=== PATIENT | female | born 1950 ===

== ENCOUNTER 2016-12-23 13:36 | Inpatient (IN) ==
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
[2016-12-23] MEDS ORDERED: GLUCAGON 1 MG VIAL IM PRN (17:07)
[2016-12-23] MEDS ORDERED: ACETAMINOPHEN 325 MG TABLET PO PRN (17:07)
[2016-12-23] MEDS ORDERED: ONDANSETRON 4 MG/2 ML VIAL IV PRN (17:07)
[2016-12-23] MEDS ORDERED: MAGNESIUM SULF RIDER 2 GM in PREMIX 1 EACH IV PRN (17:07)
[2016-12-23] MEDS ORDERED: MAGNESIUM SULF RIDER 4 GM in PREMIX 1 EACH IV PRN (17:07)
[2016-12-23] MEDS ORDERED: DEXTROSE 50% 25 GM/50 ML VIAL IV PRN (17:07)
[2016-12-23] MEDS ORDERED: diphenhydrAMINE CAP 25 MG CAPSULE PO PRN (17:09)
[2016-12-23 17:59] LABS: Basophils # 0.1 10*3/uL (0.0-0.2); Basophils % 0.6 % (0.0-0.8); Eosinophils # 0.7 10*3/uL (0.0-0.87); Eosinophils % 7.3 % (0.00-10.9); Hematocrit 34.3 VOL% (35.7-47.0); Immature Granulocytes % 0.3 %; Immature Granulocytes Absolute 0.03 #; Lymphocytes # 2.5 10*3/uL (1.4-4.0); Mean Corpuscular HGB Conc 32.1 GM/DL (32-36); Mean Corpuscular Hemoglobin 31 PG (27-34); Mean Corpuscular Volume 96.6 FL (87-102); Mean Platelet Volume 9.3 FL (9.6-12.0); Monocytes # 0.7 10*3/uL (0.11-0.8); Monocytes % 6.9 % (1.7-12.7); Neutrophils % 59.9 % (38.7-73.9); Platelet Count 251 T/CUMM (130-400); Red Blood Count 3.55 MC/CUMM (3.8-5.5); Red Cell Distribution Width 15.9 % (9.3-17.3); White Blood Count 10.1 T/CUMM (4-12)
[2016-12-23] MEDS ORDERED: POLYVINYL ALCOHOL 1.4% OPH SOLN 15 ML BOTTLE BOTH EYES PRN (18:00)
[2016-12-23 18:24] LABS: Calcium 8.6 MG/DL (8.5-10.1); Potassium 4.1 MMOL/L (3.5-5.1)
[2016-12-23] MEDS: CARVEDILOL 3.125 MG TABLET PO SCH (20:57)
[2016-12-23] MEDS: NORTRIPTYLINE 25 MG CAPSULE PO SCH (20:57)
[2016-12-23] MEDS: LISINOPRIL 10 MG TABLET PO SCH (20:58)
[2016-12-23] MEDS: INSULIN GLARGINE 100 UNIT/ML SUBCUT SCH (20:58)
[2016-12-23] MEDS ORDERED: FUROSEMIDE 40 MG/4 ML VIAL IV ONE (21:00)
[2016-12-23] MEDS: MINERAL OIL/PETROLATUM OPH OINT 3.5 GM TUBE BOTH EYES SCH (21:05)
[2016-12-23] MEDS: INSULIN REGULAR 100 UNIT/ML SUBCUT SCH (21:05)
[2016-12-23] MEDS: INSULIN LISPRO 100 UNIT/ML SUBCUT SCH (21:05)
[2016-12-23] MEDS: ENOXAPARIN 40 MG/0.4 ML SYRINGE SUBCUT SCH (21:42)
[2016-12-24 04:32] LABS: Basophils % 0.4 % (0.0-0.8); Eosinophils # 0.6 10*3/uL (0.0-0.87); Eosinophils % 7.6 % (0.00-10.9); Hematocrit 28.9 VOL% (35.7-47.0); Hemoglobin 9.4 GM/DL (12.0-16.0); Immature Granulocytes % 0.5 %; Immature Granulocytes Absolute 0.04 #; Lymphocytes # 2.2 10*3/uL (1.4-4.0); Mean Corpuscular HGB Conc 32.5 GM/DL (32-36); Mean Corpuscular Hemoglobin 31 PG (27-34); Mean Corpuscular Volume 94.8 FL (87-102); Mean Platelet Volume 9.3 FL (9.6-12.0); Monocytes # 0.7 10*3/uL (0.11-0.8); Monocytes % 7.9 % (1.7-12.7); Neutrophils # 4.8 10*3/uL (1.4-7.4); Neutrophils % 57.6 % (38.7-73.9); Platelet Count 204 T/CUMM (130-400); Red Blood Count 3.05 MC/CUMM (3.8-5.5); Red Cell Distribution Width 15.9 % (9.3-17.3); White Blood Count 8.3 T/CUMM (4-12)
[2016-12-24 05:11] LABS: Calcium 7.9 MG/DL (8.5-10.1); Free T4 (Free Thyroxine) 1.14 NG/DL (0.76-1.46); Osmolality,Calculated 287.8 MOS/KG (273-304); Potassium 3.5 MMOL/L (3.5-5.1); Thyroid Stimulating Hormone 6.18 uIU/ml (0.358-3.74)
--- NOTE | 2016-12-24 07:22 | XRay Report ---
Exam: Chest 2 views Date: December 24, 2016 at 7:09 AM Comparison: Chest one view portable October 26, 2015 Reason: Shortness of breath Findings: The cardiac silhouette is again mildly enlarged, and there is prominent calcified plaque at the thoracic aorta. Perihilar and bibasilar opacities are present. This is concerning for pulmonary edema and atelectasis, but pneumonia is not excluded. No pneumothorax is identified, but there is mild bilateral pleural fluid. No acute osseous process is seen. Impression: 1. Mild cardiomegaly. 2. There are perihilar and bibasilar opacities. This is concerning for pulmonary edema and atelectasis, but pneumonia is not excluded. There is also mild bilateral pleural fluid. PROCEDURE INTERPRETED AT [facility] DEPARTMENT OF RADIOLOGY Final Report Signed by: Dr. Kiana Beverly
[2016-12-24] MEDS: INSULIN LISPRO 100 UNIT/ML SUBCUT SCH ×4 (08:39→21:14)
[2016-12-24] MEDS: INSULIN REGULAR 100 UNIT/ML SUBCUT SCH ×4 (08:39→21:14)
[2016-12-24] MEDS: FUROSEMIDE 40 MG/4 ML VIAL IV SCH ×2 (09:41→15:05)
[2016-12-24] MEDS: MULTIVITAMIN (CENTRUM) TABLET PO SCH (09:41)
[2016-12-24] MEDS: LISINOPRIL 10 MG TABLET PO SCH ×2 (09:41→21:13)
[2016-12-24] MEDS: CARVEDILOL 3.125 MG TABLET PO SCH ×2 (09:42→21:13)
[2016-12-24] MEDS: ASPIRIN EC 81 MG TABLET PO SCH (09:42)
[2016-12-24] MEDS: sitaGLIPtin 100 MG TABLET PO SCH (09:42)
[2016-12-24] MEDS: SIMVASTATIN 20 MG TABLET PO SCH (09:42)
--- NOTE | 2016-12-24 14:03 | Hospitalist Progress Note ---
Hospitalist: Subjective Interval history: Mrs Jaquez is feeling much better today. She is breathing better and can get up to the bathroom so I will take her trimble out. Her echo was done but has not been read. She has no history of CAD or [place], no recent illness or thyroid disease. Her symptoms started a couple of days ago. A/P new CHF- pulmonary edema for the first time, responding to lasix. continue lasix and usual lisinopril, coreg, asa, zocor. echo pending. cardiology to see. Needs eval to rule out CAD as cause. BNP 1886 DM- on her home regimen, SSI HTN Hyperlipidemia- on Zocor. Exam - Constitutional Vitals: Period Temp Pulse Resp BP Sys/Berman Pulse Ox Last 24 Hr 97.8 F-98.3 F 84-112 16-20 101-176/57-90 98-100 General appearance: no acute distress, over weight - Eye Eye exam: Present: EOMI. Absent: scleral icterus - Respiratory Respiratory exam: Present: rales (jail up her back) - Cardiovascular Cardiovascular exam: Present: regular rate and rhythm. Absent: diastolic murmur , systolic murmur - GI/Abdominal GI/Abdominal exam: Present: normal bowel sounds, soft. Absent: tenderness - Extremities Exam Extremities exam: Absent: edema - Neurological Exam Neurological exam: Present: alert, oriented X3 Results - Labs CBC & BMP: 12/24/16 04:14 12/24/16 04:14 Lab Results: I have reviewed the past 24 hour labs
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
--- NOTE | 2016-12-24 14:47 | ECHO Report ---
Mercedes Jaquez Exam Date: 12/24/2016 09:32 Referring Physician: Technologist: Cat Edgar Age: 65 Ht (in): 61 Wt (lb): 164 Gender: F Exam Location: [facility] Echo Indications: SOB, CHF, Diabetes, HTN, hyperlipidemia BP: 101 / 57 HR: 84 Rhythm: Sinus Technical Quality: IMPRESSIONS Technically difficult study Grossly 2+ left atrial enlargement Severely reduced LV systolic function with ejection fraction estimated be 20-25% without obvious segmental wall motion abnormality Trace to 1+ mitral and tricuspid regurgitation with RVSP 35 mmHg plus RAP Pleural effusion noted MEASUREMENTS (Male / Female) Normal Values 2D ECHO LV Diastolic Diameter PLAX 4.0 cm 4.2 - 5.9 / 3.9 - 5.3 cm LV Systolic Diameter PLAX 3.1 cm LV Fractional Shortening PLAX 21.8 % IVS Diastolic Thickness 0.8 cm 0.6 - 1.0 / 0.6 - 0.9 cm LVPW Diastolic Thickness 1.1 cm 0.6 - 1.0 / 0.6 - 0.9 cm RV Internal Dim ED PLAX 2.6 cm Aortic Root Diameter 2.7 cm LA Systolic Diameter LX 3.4 cm 3.0 - 4.0 / 2.7 - 3.8 cm DOPPLER TR Peak Velocity 297.0 cm/s TR Peak Gradient 35.3 mmHg FINDINGS Left Ventricle Mildly increased left ventricular cavity size. Mild concentric left ventricular hypertrophy with diastolic dysfunction. Left ventricular ejection fraction is estimated at Right Ventricle Mildly increased right ventricular size. Right Atrium The right atrium is mildly enlarged. Left Atrium The left atrium is mildly enlarged. Mitral Valve Mild mitral valve sclerosis. Mild mitral valve regurgitation. Aortic Valve Mild aortic valve sclerosis. Trace aortic valve regurgitation. Tricuspid Valve Morphologically normal tricuspid valve. Moderate tricuspid valve regurgitation. Tricuspid regurgitation velocities suggest a PAP of 45 mmHg. Pulmonic Valve Morphologically normal pulmonic valve. Pericardium No pericardial effusion. Aorta Normal size aortic root and proximal ascending aorta. Brady Hodges (Electronically Signed) Final Date: 24 December 2016 14:46
[2016-12-24] MEDS: POTASSIUM CHLORIDE 20 MEQ TABLET PO PRN ×2 (15:05→17:13)
--- NOTE | 2016-12-24 15:06 | EKG Report ---
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
--- NOTE | 2016-12-24 15:53 | Physician Query Form ---
CLICK EDIT DOCUMENT TO SELECT QUERY ANSWER --> OK --> SIGN Elisa Arroyo RN Clinical Safety Belt Installer W) [phone] (f) [phone] [email or web address]: Make your selection(s) from the choices in EACH section by typing an "x" and enter comments in the comment section. Please use your independent medical judgment in providing your response. This request does not imply that any particular answer is desired or expected. CLINICAL INDICATORS: (Providers should not edit this section) Based on documentation of "acute CHF", PTR=[id number], Echo showed EF of 20-25% with severely reduced LV systolic function. Pt. treated with IV Lasix. Please provide further specificity regarding CHF. TYPE: ( x) Systolic (HFrEF - heart failure with reduced systolic function/EF) ( ) Diastolic (HFpEF - heart failure with preserved systolic function/EF) ( ) Combined Systolic/Diastolic ( ) Other, please specify: ( ) Clinically unable to determine ( ) The patient does NOT have CHF COMMENTS: PLEASE ALSO DOCUMENT RESPONSE IN PROGRESS NOTES AND/OR DISCHARGE SUMMARY Use of terms such as suspected, likely, or probable (associated with a specific diagnosis that is being evaluated, monitored, or treated as if it exists) are acceptable and can be restated in the discharge summary if not ruled out. MTDD
--- NOTE | 2016-12-24 16:14 | Event Note ---
Patient with chronic congestive heart failure with cardiomyopathy unknown etiology. She has multiple risk factors for coronary disease including diabetes hyperlipidemia hypertension. 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 See the patient carry out cardiac catheterization for evaluation of ischemic heart disease the etiology of her cardiomyopathy. I discussed this procedure with the patient and her family reviewing the indication procedure as well as how the procedure be carried out the risk. I discussed cardiac catheterization and percutaneous coronary intervention with the patient and available family. I reviewed with them the indications for the procedure and the basis of how the procedure would be carried out. I also reviewed with them the risk of the procedure which include but not necessarily limited to access site bleeding, bruising, pain, swelling or vascular injury that may require emergency vascular surgery, blood transfusion, or thrombin injection. Also discussed the possibility of stroke, myocardial infarction, arrhythmia which may require electrocardioversion, and the possibility of dye reaction that would require medical therapy. Also discussed the possibility of coronary artery injury, ruptured, closure or perforation that may require emergency bypass surgery. We also discussed the possibility of from a major complication. They voice understanding and agree to proceed. We will plan on carrying out in the morning.
[2016-12-24] MEDS: HYDROCORTISONE 1% CREAM 28 GM TUBE TOP SCH ×2 (17:11→21:14)
[2016-12-24] MEDS: ENOXAPARIN 40 MG/0.4 ML SYRINGE SUBCUT SCH (17:14)
[2016-12-24] MEDS: [UNRECOGNIZED DRUG - OTHER] PO SCH ×2 (21:11→21:12)
[2016-12-24] MEDS: DEXTROSE PO SCH ×2 (21:11→21:12)
[2016-12-24] MEDS: INSULIN GLARGINE 100 UNIT/ML SUBCUT SCH (21:14)
[2016-12-24] MEDS: NORTRIPTYLINE 25 MG CAPSULE PO SCH (21:14)
[2016-12-24] MEDS: MINERAL OIL/PETROLATUM OPH OINT 3.5 GM TUBE BOTH EYES SCH (21:14)
[2016-12-25 04:04] LABS: Basophils % 0.4 % (0.0-0.8); Eosinophils # 0.7 10*3/uL (0.0-0.87); Eosinophils % 8.4 % (0.00-10.9); Hematocrit 30.3 VOL% (35.7-47.0); Hemoglobin 9.7 GM/DL (12.0-16.0); Immature Granulocytes % 0.4 %; Immature Granulocytes Absolute 0.03 #; Lymphocytes # 1.9 10*3/uL (1.4-4.0); Lymphocytes % 23.4 % (21.3-54.2); Mean Corpuscular Hemoglobin 30 PG (27-34); Mean Platelet Volume 9.8 FL (9.6-12.0); Monocytes # 0.9 10*3/uL (0.11-0.8); Monocytes % 10.8 % (1.7-12.7); Neutrophils # 4.6 10*3/uL (1.4-7.4); Neutrophils % 56.6 % (38.7-73.9); Platelet Count 215 T/CUMM (130-400); Red Blood Count 3.19 MC/CUMM (3.8-5.5); Red Cell Distribution Width 15.9 % (9.3-17.3); White Blood Count 8.1 T/CUMM (4-12)
[2016-12-25 04:35] LABS: Calcium 7.9 MG/DL (8.5-10.1); Osmolality,Calculated 296.1 MOS/KG (273-304); Potassium 4.5 MMOL/L (3.5-5.1); Risk Ratio 1.77; VLDL CHOLESTEROL 17.8 MG/DL
[2016-12-25] MEDS ORDERED: POTASSIUM CHLORIDE RIDER 10 MEQ in PREMIX 1 EACH IV PRN (06:00)
[2016-12-25] MEDS ORDERED: MAGNESIUM SULF RIDER 2 GM in PREMIX 1 EACH IV PRN (06:00)
[2016-12-25] MEDS ORDERED: ASPIRIN 325 MG TABLET PO ONE (06:00)
[2016-12-25] MEDS ORDERED: DIAZEPAM 5 MG TABLET PO ONE (06:00)
[2016-12-25] MEDS ORDERED: SODIUM CHLORIDE 0.9% 1,000 ML IV SCH ×2 (06:00→09:00)
[2016-12-25] MEDS ORDERED: diphenhydrAMINE CAP 25 MG CAPSULE PO ONE (06:00)
--- NOTE | 2016-12-25 06:51 | Event Note ---
Patient this morning is for cardiac catheterization. She states she feels better today. Again we discussed cardiac catheterization possibility of percutaneous coronary intervention. I discussed cardiac catheterization and percutaneous coronary intervention with the patient and available family. I reviewed with them the indications for the procedure and the basis of how the procedure would be carried out. I also reviewed with them the risk of the procedure which include but not necessarily limited to access site bleeding, bruising, pain, swelling or vascular injury that may require emergency vascular surgery, blood transfusion, or thrombin injection. Also discussed the possibility of stroke, myocardial infarction, arrhythmia which may require electrocardioversion, and the possibility of dye reaction that would require medical therapy. Also discussed the possibility of coronary artery injury, ruptured, closure or perforation that may require emergency bypass surgery. We also discussed the possibility of from a major complication. They voice understanding and agree to proceed.
--- NOTE | 2016-12-25 06:51 | History and Physical Update ---
Sedation H&P Update - History and Physical H&P was reviewed, the patient examined and there: are no changes in the patients condition since last H&P was completed. - Dictation Physical: refer to H&P completed by admitting physician - Physical Exam Mental Status: alert and oriented Heart: regular rate and rhythm Lung: clear to auscultation Abdomen: within normal limits Vitals: within normal limits History and Physical Changes: None - Sedation Plan for Sedation: moderate Patient Consent: Procedure disscussed with patient and patinet has consented., Risks and benefits were discussed with patient,including infection,, bleeding, injury to surrounding structures, seizure, temporary nerve, Patient understands and accepts potential risks/benefits and agrees to, proceed. ASA Class: III Airway Assessment: Class III: Soft palate, base of uvula visible
[2016-12-25] MEDS ORDERED: fentaNYL 100 MCG/2 ML VIAL ONE (07:14)
[2016-12-25] MEDS ORDERED: MIDAZOLAM 2 MG/2 ML VIAL ONE (07:14)
[2016-12-25] MEDS ORDERED: LIDOCAINE 1% 20 ML VIAL ONE (07:14)
[2016-12-25] MEDS: CARVEDILOL 3.125 MG TABLET PO SCH ×3 (07:57→20:38)
[2016-12-25] MEDS: LISINOPRIL 10 MG TABLET PO SCH ×3 (07:58→20:38)
[2016-12-25] MEDS: INSULIN REGULAR 100 UNIT/ML SUBCUT SCH ×4 (08:05→20:38)
[2016-12-25] MEDS: FUROSEMIDE 40 MG/4 ML VIAL IV SCH ×2 (08:06→16:54)
[2016-12-25] MEDS ORDERED: ATROPINE 1 MG/1 ML VIAL ONE ×2 (08:46→08:49)
[2016-12-25] MEDS ORDERED: DEXTROSE 50% 25 GM/50 ML VIAL IV PRN (08:58)
[2016-12-25] MEDS ORDERED: GLUCAGON 1 MG VIAL IM PRN (08:58)
--- NOTE | 2016-12-25 08:58 | Operative Note ---
Date of procedure: 12/25/16 Procedure Preformed: Left heart catheterization with coronary artery angiography. LV gram not done secondary to creatinine. Surgeon / Physician: Jarvis Smith Clinical Education Specialist: Archana Car Post-op diagnosis: same Findings: Left dominant system with patent coronary arteries. Elevated LVEDP Specimens: none sent Estimated blood loss: minimal Condition: stable Anesthesia: local, conscious sedation Disposition: floor
[2016-12-25] MEDS: INSULIN LISPRO 100 UNIT/ML SUBCUT SCH ×3 (09:00→20:43)
[2016-12-25] MEDS ORDERED: NALOXONE 0.4 MG/ML VIAL ONE (09:02)
--- NOTE | 2016-12-25 09:21 | Cardiac Catheterization ---
Date of Procedure:: 12/25/16 Pre-op Diagnosis: Patient cardiomyopathy with high risk factors for ischemic heart disease. Further evaluation coronary anatomy. Post-op diagnosis: same Procedure: LEFT HEART CATHERIZATION History: 66-year-old female who presented with heart failure symptomatology findings. She had a diffuse cardiomyopathy. She has multiple risk factors for coronary disease. She is now for cardiac catheterization to evaluate ischemic etiology of her cardiomyopathy. Pre-Op diagnosis: Patient with severe significant cardiomyopathy and decreased ejection fraction. Risk factors for coronary disease now for evaluation. Postoperative diagnosis: Patent coronary arteries. Procedures: 1. Left heart catheterization. 2. Left ventricular angiogram not done secondary to elevated creatinine and high LVEDP. 3. Selective left and right coronary angiograms. 4. Right common femoral artery angiogram. Equipment: 6 Burmese arterial sheath, 6 Burmese diagnostic pigtail catheter, JL4 and JR4 diagnostic catheters. Medications: Preoperative Benadryl and Valium given by mouth. Lidocaine 1% local anesthesia 10 mls administered by myself. Intraprocedure patient received Versed 1 mgs IVP, fentanyl 50 mcg IVP atropine 1.5 mg IVP, for bradycardia. Complications: None immediate. Patient did have bradycardia/sinus arrest with junctional escape with each injection of the left coronary system. Contrast: Visipaque 60 milliliters. Description of procedure: After informed consent the patient was given preoperative medications and brought to the catheterization laboratory where their right groin was prepped and draped in usual fashion. IV sedation was then obtained after which local anesthesia was administered at the right groin over the right common femoral artery. Using modified Seldinger technique the right common femoral artery was cannulated with 6 Burmese arterial sheath placed. The pigtail catheter was then advanced through the sheath in a retrograde approach through the aorta to the aortic valve. The catheter was advanced through the aortic valve where left ventricular pressures were measured. The catheter was then pulled back into the aortic root and pressures measured. The catheter was then advanced across the aortic valve into the left ventricle where left ventricular angiogram was obtained in the right anterior oblique view. The pigtail catheter was then removed. The JL4 diagnostic coronary catheter was then advanced through the sheath in a retrograde approach and used to cannulate the left coronary artery of which angiograms were obtained in multiple projections. This catheter was then removed. The JR 4 diagnostic coronary catheter was then advanced retrograde through the aorta and used to cannulate the right coronary artery of which angiograms were obtained in multiple projections. This right coronary catheter was used to obtain selective left internal mammary artery angiogram. Angiograms were then reviewed. The right coronary catheter was pulled back into the sheath where a right common femoral artery angiogram was obtained with Angio-Seal hemostasis then obtained of this vessel. There were no immediate complications. Hemodynamic data: LV 117/7 , EDP 29 ; AO root 129/75 , mean 95 . Left ventricular angiogram: Not done secondary to elevated creatinine in LV function evaluated by echocardiogram. Left main coronary artery angiogram: There is some calcification of the main coronary artery. It is a medium caliber vessel that bifurcates the LAD and circumflex arteries. Left anterior descending artery angiogram: LAD is a medium caliber vessel and smaller than the circumflex artery. The LAD extends around the posterior apex. Diagonal branches are all small-caliber vessels. LAD at worst has minimal calcification and basal irregularities proximally but there is no stenosis. Circumflex artery angiogram: Circumflex arteries a medium caliber vessel and dominant. He has minimal calcification noted. Gives rise to the PDA as well as AV node artery. The first and second obtuse marginal branches are extremely small. Third obtuse marginal branch is medium caliber vessel. The fourth obtuse marginal branch has a 50% ostial stenosis and is small caliber long vessel. Beyond this there is a bifurcating posterior ventricular branch that is medium caliber car larger myocardium. The PDA is a small caliber vessel as the terminal branch of the circumflex artery. It is small. AV node artery small vessel has a takeoff just prior to the PDA takeoff. Other than 50% stenosis of the fourth obtuse marginal branch and mild luminal irregularities there is no stenosis of significance noted. Right coronary artery angiogram: RCA is a small nondominant vessel. It is without stenosis or disease. Right common femoral artery angiogram:Right common femoral artery is patent with some diffuse calcification. It is noted that the superficial artery is totally occluded and heavily calcified. There is also calcification in the profundus. Hemostasis obtained by direct manual pressure. Impression: 1. Left ventricular angiogram not done secondary elevated creatinine in LV function noted on echocardiogram. 2. LVEDP is at least moderately elevated at 29 mmHg. 3. There is no gradient across the aortic valve. 4. Right coronary artery is small nondominant without stenosis. 5. Left main coronary artery has some calcification and without stenosis. 6. Left anterior right common femoral artery is patent but with some calcification. There is no obstructive disease present. 7. Circumflex artery is dominant. Fourth obtuse marginal having 50% ostial stenosis and luminal irregularities and minimal calcification. 8. Right common femoral artery with some calcification and small. The right superficial femoral artery is totally occluded and appears to be calcified. 9. Hemostasis of the right common femoral artery obtained by direct manual pressure. 10. The patient had sinus asystole with junctional escape with contrast injection of the left coronary system. Discussion: Patient be monitored post procedure. Further evaluation will be carried out in treatment for cardiomyopathy. Risk factor modification is to continue. Implants: None Anesthesia: local, moderate conscious sedation Surgeon / Physician: Jarvis Smith Supervisor Conditioning Yard: other (Archana Car Rn) Estimated blood loss: minimal Specimens: none sent Condition: stable Disposition: floor - Medications / Follow-up
--- NOTE | 2016-12-25 09:58 | Event Note ---
Patient post catheterization is stable. She still sedate. Her right groin is stable. I discussed procedure results with the patient and family available.
[2016-12-25] MEDS: ASPIRIN EC 81 MG TABLET PO SCH (11:46)
[2016-12-25] MEDS: HYDROCORTISONE 1% CREAM 28 GM TUBE TOP SCH ×3 (11:59→20:39)
[2016-12-25] MEDS: SIMVASTATIN 20 MG TABLET PO SCH (11:59)
[2016-12-25] MEDS: sitaGLIPtin 100 MG TABLET PO SCH (11:59)
[2016-12-25] MEDS: MULTIVITAMIN (CENTRUM) TABLET PO SCH (11:59)
--- NOTE | 2016-12-25 13:40 | Hospitalist Progress Note ---
Assessment and Plan (1) CHF (congestive heart failure) Status: Acute Assessment and plan: 1)CHF- acute on chronic systolic- on lisinopril, zocor, lasix and coreg. diuresing. Now lying flat comfortably. home soon. cath without sig CAD. Nonischemic cardiomyopathy. 2)DM- BG from 58 to over 300. continue with SSI for now with lantus and mealtime novolog as at home. 3)HTN- controlled, conitnue meds. Current Visit: Yes (2) Anemia Status: Acute Current Visit: No (3) LATASHA (acute kidney injury) Status: Resolved Current Visit: No (4) Diabetes mellitus Status: Chronic Current Visit: Yes Qualifiers: Diabetes mellitus type: type 2 (5) Hypertension Status: Chronic Current Visit: Yes Qualifiers: Hypertension type: essential hypertension Qualified Code(s): I10 - Essential (primary) hypertension (6) Hyperlipidemia Status: Chronic Current Visit: Yes (7) History of right above knee amputation Status: Chronic Current Visit: Yes Hospitalist: Subjective Interval history: Mrs Jaquez was sedated after cath when I went to see her. She was stable and woke to say she was fine and didn't need anything. She was breathing comfortably on room air. Exam - Constitutional Vitals: Period Temp Pulse Resp BP Sys/Berman Pulse Ox Last 24 Hr 97 F-99.2 F 94-111 18-20 115-139/71-91 100-100 General appearance: no acute distress, over weight - Head Head exam: Present: normocephalic, atraumatic - Respiratory Respiratory exam: Present: clear to auscultation bilaterally - Cardiovascular Cardiovascular exam: Present: regular rate and rhythm - GI/Abdominal GI/Abdominal exam: Present: normal bowel sounds, soft. Absent: tenderness - Extremities Exam Extremities exam: Absent: edema Results - Labs CBC & BMP: 12/25/16 02:29 12/25/16 02:29 Lab Results: I have reviewed the past 24 hour labs Specialty Discharge - Follow Up or Referrals
[2016-12-25] MEDS: DEXTROSE PO SCH (18:42)
[2016-12-25] MEDS: [UNRECOGNIZED DRUG - OTHER] PO SCH (18:42)
[2016-12-25] MEDS: ENOXAPARIN 40 MG/0.4 ML SYRINGE SUBCUT SCH (18:43)
[2016-12-25] MEDS: INSULIN GLARGINE 100 UNIT/ML SUBCUT SCH (20:38)
[2016-12-25] MEDS: MINERAL OIL/PETROLATUM OPH OINT 3.5 GM TUBE BOTH EYES SCH (20:39)
[2016-12-25] MEDS: NORTRIPTYLINE 25 MG CAPSULE PO SCH (20:43)
[2016-12-26 05:11] LABS: Basophils % 0.4 % (0.0-0.8); Eosinophils # 0.8 10*3/uL (0.0-0.87); Eosinophils % 10.6 % (0.00-10.9); Hematocrit 27.8 VOL% (35.7-47.0); Hemoglobin 8.9 GM/DL (12.0-16.0); Immature Granulocytes % 0.3 %; Immature Granulocytes Absolute 0.02 #; Lymphocytes # 1.9 10*3/uL (1.4-4.0); Lymphocytes % 23.4 % (21.3-54.2); Mean Corpuscular Hemoglobin 31 PG (27-34); Mean Corpuscular Volume 95.9 FL (87-102); Monocytes # 0.7 10*3/uL (0.11-0.8); Monocytes % 8.7 % (1.7-12.7); Neutrophils # 4.5 10*3/uL (1.4-7.4); Neutrophils % 56.6 % (38.7-73.9); Platelet Count 201 T/CUMM (130-400); Red Cell Distribution Width 15.7 % (9.3-17.3); White Blood Count 7.9 T/CUMM (4-12)
[2016-12-26 05:41] LABS: Calcium 7.7 MG/DL (8.5-10.1); Magnesium 1.9 MG/DL (1.8-2.4); Osmolality,Calculated 284.5 MOS/KG (273-304); Potassium 4.1 MMOL/L (3.5-5.1)
[2016-12-26 08:20] VITALS: BP 117/69
[2016-12-26] MEDS: INSULIN REGULAR 100 UNIT/ML SUBCUT SCH (08:43)
[2016-12-26] MEDS: FUROSEMIDE 40 MG/4 ML VIAL IV SCH (09:20)
[2016-12-26] MEDS: LISINOPRIL 10 MG TABLET PO SCH (09:22)
[2016-12-26] MEDS: CARVEDILOL 3.125 MG TABLET PO SCH (09:23)
[2016-12-26] MEDS: MULTIVITAMIN (CENTRUM) TABLET PO SCH (09:24)
[2016-12-26] MEDS: ASPIRIN EC 81 MG TABLET PO SCH (09:24)
[2016-12-26] MEDS: sitaGLIPtin 100 MG TABLET PO SCH (09:24)
[2016-12-26] MEDS: INSULIN LISPRO 100 UNIT/ML SUBCUT SCH (09:25)
[2016-12-26] MEDS: SIMVASTATIN 20 MG TABLET PO SCH (09:25)
[2016-12-26] MEDS: HYDROCORTISONE 1% CREAM 28 GM TUBE TOP SCH (09:32)
--- NOTE | 2016-12-26 10:58 | Discharge Summary ---
Hospital Course - Hospital Course Hospital Course: Mrs Jaquez was sent from [facility] ER with new CHF. She has reponded to IV lasix with clearing of her pulmonary edema and her lower extremity edema. She ruled out for OR and her TSH was ok. She has EF of 20-25% on echo. She had cath yesterday that showed 50% ostial LAD disease but did not require percutaneous intervention. This is nonischemic cardiomyopathy, perhaps a result of HTN. She is doing much better and will be discharged home today to follow up with [facility] and with Dr Hodges in 1-2 weeks. She will be on oral lasix in addition to her home regimen of coreg and lisinopril. Continue usual insulin and orals for diabetes. To have work up for anemia as outpatient at [facility]. - Time spent with patient Time with patient DS: Greater than 30 minutes (exam, coordination of care, medicine reconciliation, documentation took 35 minutes.) Diagnosis - Discharge Diagnosis (1) CHF (congestive heart failure) Status: Acute (2) Anemia Status: Chronic (3) Diabetes mellitus Status: Chronic (4) Hypertension Status: Chronic (5) Hyperlipidemia Status: Chronic (6) History of right above knee amputation Status: Chronic Specialty Discharge - Follow Up or Referrals Follow up with: [facility] [Provider Group] - 5 Days (needs outpatient anemia evaluation. new nonischemic cardiomyopathy. ) Brady Hodges MD [Physician] - 2 Weeks Discharge Plan - Discharge Data Disposition: Disch To Home/Self Care Condition at Discharge: Stable Discharge Diet: diabetic diet, heart healthy Activity: resume usual activities as tolerated - Discharge Medications New Hydrocortisone 1% Cream 1 applic TOP TID applic Potassium Chloride 20 meq PO DAILY #30 tab.er.prt Furosemide Tab [Lasix Tab] 40 mg PO DAILY #30 tablet Continue Simvastatin [Zocor] 20 mg PO DAILY tablet Nortriptyline [Pamelor] 50 mg PO BEDTIME Multivitamin with Iron [Multivitamins with Iron] 1 tablet PO DAILY Insulin Aspart [NovoLOG FlexPen] 7 units SUBCUT TID Dextrose [Glucose Chew Tab] 8 gm PO DIRECTED diphenhydrAMINE CAP [Benadryl Cap] 25 mg PO BEDTIME PRN PRN Reason: Insomnia Insulin Detemir [Levemir FlexPen] 30 units SUBCUT BEDTIME Mineral Oil/Petrolatum,White [Artificial Tears Eye Ointment] 1 applicator BOTH EYES BEDTIME Aspirin EC Tab 81 mg PO DAILY Propylene Glycol/Peg 400 [Systane Ultra] 1 drop BOTH EYES QID PRN PRN Reason: Dry Eyes Saxagliptin HCl [Onglyza] 5 mg PO DAILY Lisinopril 10 mg PO BID Carvedilol [Coreg] 6.25 mg PO BID - Follow Up or Referral Follow Up: [facility] [Provider Group] Brady Hodges MD [Physician] - - Forms/Instructions Instructions: Coronary Artery Disease (GEN), Left Heart Catheterization (DC), Hypertrophic Cardiomyopathy (GEN), Heart Healthy Diet (GEN) Exam - Constitutional Vitals: Period Temp Pulse Resp BP Sys/Berman Pulse Ox Last 24 Hr 97.7 F-98.8 F 94-102 18-20 117-139/69-91 98-100 Discharge Results Procedures and tests throughout hospitalization: Pending Orders 12/25/16 08:19 CL heart Stat 12/27/16 04:00 Basic Metabolic Panel w/Mg IN AM Comp Blood Count Auto Diff IN AM 12/28/16 04:00 Basic Metabolic Panel w/Mg IN AM Comp Blood Count Auto Diff IN AM Labs on day of discharge: Labs from last 24 hours 12/26/16 12/26/16 12/26/16 07:57 03:51 03:51 WBC 7.9 RBC 2.90 L Hgb 8.9 L Hct 27.8 L MCV 95.9 MCH 31 MCHC 32.0 RDW 15.7 Plt Count 201 MPV 10.0 Neut % (Auto) 56.6 Lymph % (Auto) 23.4 Boone % (Auto) 8.7 Eos % (Auto) 10.6 Baso % (Auto) 0.4 Neut # (Auto) 4.5 Lymph # (Auto) 1.9 Boone # (Auto) 0.7 Eos # (Auto) 0.8 Baso # (Auto) 0.0 Immature Gran % 0.3 Nucleated RBC % 0.0 Immature Gran # 0.02 Nucleated RBCs # 0.00 Sodium 139 Potassium 4.1 Chloride 103 Carbon Dioxide 27 Anion Gap 13.1 BUN 29 H Creatinine 1.20 H GFR Calculation 48 BUN/Creatinine Ratio 24.00 H Glucose 133 H POC Glucose 143 H Calculated Osmolality 284.5 Calcium 7.7 L Magnesium 1.9 06/12/25/16 12/25/16 20:38 16:30 11:44 WBC RBC Hgb Hct MCV MCH MCHC RDW Plt Count MPV Neut % (Auto) Lymph % (Auto) Boone % (Auto) Eos % (Auto) Baso % (Auto) Neut # (Auto) Lymph # (Auto) Boone # (Auto) Eos # (Auto) Baso # (Auto) Immature Gran % Nucleated RBC % Immature Gran # Nucleated RBCs # Sodium Potassium Chloride Carbon Dioxide Anion Gap BUN Creatinine GFR Calculation BUN/Creatinine Ratio Glucose POC Glucose 224 H 222 H 192 H Calculated Osmolality Calcium Magnesium DS: Provider Date of admission: 12/23/16 15:56 Primary care physician: Gina Jolley MD Attending physician on admission: Tamika Hernandez MD Consults: 12/24/16 10:50 Consult to Physician [CONS] Routine Comment: new chf, ? cause Consulting Provider: Cardiology - [facility] 12/25/16 08:59 Consult to Cardiac Rehabilitation [CONS] Routine Reason for Cardiac Rehabilitation: Risk Factor Modification Discharging clinician: Tamika Hernandez MD
--- NOTE | 2016-12-26 11:36 | Cardiology Progress Note ---
Assessment and Plan (1) Chest pain Status: Acute Assessment and plan: 1. Ms. Jaquez's chest pain is gone and her breathing is much improved 2. Creatinine is slightly up; change Lasix to p.o. 3. No significant coronary artery disease or heart catheterization; she did appear to have at least 50% ostial LAD disease 4. Ostial right SFA occlusion noted. 5. She is on appropriate medication for her acute on chronic systolic heart failure with beta-kaitlyn and MILAD inhibitor 6. Follow-up in clinic in approximately 1-2 weeks time; he is noted to be 20-25 %/nonischemic cardiaomyopathy Current Visit: Yes (2) CHF (congestive heart failure) Status: Acute Current Visit: Yes Cardiology - PN: Subj Interval history: Ms. Jaquez feels much better than when she came in. She has no shortness of breath at rest does not have any chest pain. She has not had any discomfort in her access site. Her blood pressure is controlled and her renal function is reasonably stable. She has had no dysrhythmia. She has not had any bleeding problems. Exam (Progress Note) - Constitutional Vitals: Period Temp Pulse Resp BP Sys/Berman Pulse Ox Last 24 Hr 97.7 F-98.8 F 94-102 18-20 117-134/69-91 98-100 General appearance: no acute distress, over weight - Head Head exam: Present: normal inspection, normocephalic, atraumatic - Neck Neck exam: Present: normal inspection - Respiratory Respiratory exam: Present: rales (Few basilar rales). Absent: rhonchi, stridor , wheezes - Cardiovascular Cardiovascular exam: Present: regular rate and rhythm. Absent: diastolic murmur , rubs - GI/Abdominal GI/Abdominal exam: Present: soft. Absent: tenderness - Extremities Exam Extremities exam: Present: other (AKA unilateral). Absent: edema - Neurological Exam Neurological exam: Present: alert, oriented X3 Result/EKG - Labs CBC & BMP: 12/26/16 03:51 12/26/16 03:51 Labs: Laboratory Results - last 24 hr 12/25/16 12/25/16 12/25/16 11:44 16:30 20:38 WBC RBC Hgb Hct MCV MCH MCHC RDW Plt Count MPV Neut % (Auto) Lymph % (Auto) Terry % (Auto) Eos % (Auto) Baso % (Auto) Neut # (Auto) Lymph # (Auto) Terry # (Auto) Eos # (Auto) Baso # (Auto) Immature Gran % Nucleated RBC % Immature Gran # Nucleated RBCs # Sodium Potassium Chloride Carbon Dioxide Anion Gap BUN Creatinine GFR Calculation BUN/Creatinine Ratio Glucose POC Glucose 192 H 222 H 224 H Calculated Osmolality Calcium Magnesium 12/26/16 12/26/16 12/26/16 03:51 03:51 07:57 WBC 7.9 RBC 2.90 L Hgb 8.9 L Hct 27.8 L MCV 95.9 MCH 31 MCHC 32.0 RDW 15.7 Plt Count 201 MPV 10.0 Neut % (Auto) 56.6 Lymph % (Auto) 23.4 Terry % (Auto) 8.7 Eos % (Auto) 10.6 Baso % (Auto) 0.4 Neut # (Auto) 4.5 Lymph # (Auto) 1.9 Terry # (Auto) 0.7 Eos # (Auto) 0.8 Baso # (Auto) 0.0 Immature Gran % 0.3 Nucleated RBC % 0.0 Immature Gran # 0.02 Nucleated RBCs # 0.00 Sodium 139 Potassium 4.1 Chloride 103 Carbon Dioxide 27 Anion Gap 13.1 BUN 29 H Creatinine 1.20 H GFR Calculation 48 BUN/Creatinine Ratio 24.00 H Glucose 133 H POC Glucose 143 H Calculated Osmolality 284.5 Calcium 7.7 L Magnesium 1.9 Specialty Discharge - Follow Up or Referrals Follow up with: [facility] [Provider Group] Brady Hodges MD [Physician] -
[2016-12-27] MEDS ORDERED: FUROSEMIDE 40 MG TABLET PO SCH (09:00)
== END 2016-12-26 12:30 | disposition home or self-care (01) | DRG 287 ==
LOC: N.TELEN 15:56
PROVIDERS: ADMIT Internal Medicine; ATTEND Internal Medicine
PROC: CLCCHCL (ICD-10-PCS; 2016-12-25 09:15)

== ENCOUNTER 2017-03-21 16:17 | Inpatient (IN) ==
[2017-03-21] MEDS ORDERED: DEXTROSE 50% 25 GM/50 ML SYRINGE IV PRN (19:46)
[2017-03-21] MEDS ORDERED: ONDANSETRON 4 MG/2 ML VIAL IV PRN (19:46)
[2017-03-21] MEDS ORDERED: ZALEPLON 5 MG CAPSULE PO PRN (19:46)
[2017-03-21] MEDS ORDERED: GLUCAGON 1 MG VIAL IM PRN (19:46)
[2017-03-21] MEDS ORDERED: DOCUSATE SODIUM 100 MG CAPSULE PO PRN (19:46)
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
--- NOTE | 2017-03-21 20:35 | XRay Report ---
History: Shortness of breath Date: 03/21/2017 Study: Chest x-ray AP portable Comparison exam: March 19, 2017 There is continued cardiomegaly. The mediastinal contour is unchanged. The pulmonary vasculature is prominent. A left subclavian multiple lead transvenous pacemaker is unchanged and is intact. There is some continued patchy and hazy edema in the lower lungs, grossly similar. There is no definite new or worsening infiltrate. The osseous structures are generally unchanged. Impression: Continued pulmonary edema, the same or slightly increased PROCEDURE INTERPRETED AT [facility] DEPARTMENT OF RADIOLOGY Final Report Signed by: Dr. Tia Slater
[2017-03-21 20:38] LABS: Basophils % 0.3 % (0.0-0.8); Eosinophils # 0.1 10*3/uL (0.0-0.87); Eosinophils % 1.7 % (0.00-10.9); Hematocrit 29.1 VOL% (35.7-47.0); Hemoglobin 9.7 GM/DL (12.0-16.0); Immature Granulocytes % 0.4 %; Immature Granulocytes Absolute 0.03 #; Lymphocytes # 0.8 10*3/uL (1.4-4.0); Lymphocytes % 11.4 % (21.3-54.2); Mean Corpuscular HGB Conc 33.3 GM/DL (32-36); Mean Corpuscular Hemoglobin 31 PG (27-34); Mean Corpuscular Volume 92.4 FL (87-102); Mean Platelet Volume 9.3 FL (9.6-12.0); Monocytes # 0.3 10*3/uL (0.11-0.8); Monocytes % 4.6 % (1.7-12.7); Neutrophils # 5.9 10*3/uL (1.4-7.4); Neutrophils % 81.6 % (38.7-73.9); Platelet Count 149 T/CUMM (130-400); Red Blood Count 3.15 MC/CUMM (3.8-5.5); Red Cell Distribution Width 17.7 % (9.3-17.3); White Blood Count 7.3 T/CUMM (4-12)
[2017-03-21 20:51] LABS: INR 1.1; PT Patient Result 12.2 SECS
[2017-03-21 21:10] LABS: Albumin 2.2 G/DL (3.4-5.0); Bilirubin,Total 0.8 MG/DL (0.2-1.0); Calcium 7.5 MG/DL (8.5-10.1); Potassium 4.2 MMOL/L (3.5-5.1); Total Protein 5.4 G/DL (6.4-8.3)
[2017-03-21 21:12] LABS: Troponin I Only 0.034 NG/ML (0.00-0.045)
[2017-03-21 21:18] LABS: Risk Ratio 1.52; VLDL CHOLESTEROL 7.6 MG/DL
[2017-03-21] MEDS: ENOXAPARIN 40 MG/0.4 ML SYRINGE SUBCUT SCH (21:33)
[2017-03-22] MEDS: ACETAMINOPHEN 325 MG TABLET PO PRN ×3 (00:25→22:12)
[2017-03-22] MEDS ORDERED: MINERAL OIL/PETROLATUM OPH OINT 3.5 GM TUBE BOTH EYES PRN (02:43)
[2017-03-22] MEDS: MULTIVITAMIN (CENTRUM) TABLET PO SCH (08:08)
[2017-03-22] MEDS: CARVEDILOL 25 MG TABLET PO SCH ×2 (08:08→20:40)
[2017-03-22] MEDS: PANTOPRAZOLE 40 MG TABLET PO SCH (08:08)
[2017-03-22] MEDS: SACUBITRIL/VALSARTAN 49-51 MG TABLET PO SCH ×2 (08:08→20:40)
--- NOTE | 2017-03-22 11:05 | Hospitalist Progress Note ---
Assessment and Plan (1) Diabetes mellitus Status: Chronic Assessment and plan: Holding insulin and saxagliptin Current Visit: No Qualifiers: Diabetes mellitus type: type 2 (2) Hypertension Status: Chronic Current Visit: No Qualifiers: Hypertension type: essential hypertension Qualified Code(s): I10 - Essential (primary) hypertension (3) Hypoglycemia Status: Acute Assessment and plan: Hold DM medications Monitor closely Current Visit: Yes (4) ICD (implantable cardioverter-defibrillator) in place Status: Chronic Current Visit: No Hospitalist: Subjective Interval history: No acute events overnight. Patient reports some soreness at the site where her defibrillator was placed last week. Exam - Constitutional Vitals: Period Temp Pulse Resp BP Sys/Berman Pulse Ox Last 24 Hr 95.4 F-98.0 F 83-92 10-20 102-153/54-99 97-100 General appearance: normal weight - Head Head exam: Present: normocephalic, atraumatic - Eye Eye exam: Present: EOMI Pupils: Present: PATY - ENT ENT exam: Present: normal exam - Neck Neck exam: Present: normal inspection - Respiratory Respiratory exam: Present: clear to auscultation bilaterally. Absent: rhonchi, wheezes - Cardiovascular Cardiovascular exam: Present: regular rate and rhythm - GI/Abdominal GI/Abdominal exam: Present: normal bowel sounds, soft. Absent: tenderness, rebound - Extremities Exam Extremities exam: Present: normal inspection - Back Exam Back exam: Present: normal inspection - Neurological Exam Neurological exam: Present: alert - Psychiatric Psychiatric exam: Present: normal affect, normal mood - Skin Skin exam: Present: warm, intact Results - Labs CBC & BMP: 03/21/17 20:34 03/21/17 20:34
[2017-03-22 11:18] LABS: Apearance,Urine Slightly Hazy (Clear); Bacteria,Urine Occasional /HPF (Few); Bilirubin,Urine Negative (Negative); Blood, Urine Moderate mg/dL (Negative); Glucose,Urine (UA) Negative (Negative); Ketones,Urine Negative (Negative); Mucus,Urine Occasional /LPF (Occasional); Nitrite,Urine Negative (Negative); Protein,Urine 100 MG/DL; RBC,Urine 20 /HPF (0-4); Squamous Epithelial Cell,Urine Occasional /HPF (0-10); Urine Color Yellow (Yellow); Urine Specific Gravity 1.012 (1.001-1.035); Urine Urobilinogen < 2.0 EU/DL (0.2-1.0); WBC,Urine 5 /HPF (0-6)
[2017-03-22] MEDS: ENOXAPARIN 40 MG/0.4 ML SYRINGE SUBCUT SCH (20:44)
[2017-03-22] MEDS ORDERED: ATORVASTATIN 40 MG TABLET PO SCH (21:00)
[2017-03-22] MEDS ORDERED: ASPIRIN EC 81 MG TABLET PO SCH (21:00)
[2017-03-22] MEDS ORDERED: NORTRIPTYLINE 25 MG CAPSULE PO SCH (21:00)
[2017-03-23 06:18] LABS: Basophils % 0.5 % (0.0-0.8); Eosinophils # 0.8 10*3/uL (0.0-0.87); Eosinophils % 11.9 % (0.00-10.9); Hematocrit 27.7 VOL% (35.7-47.0); Immature Granulocytes % 0.5 %; Immature Granulocytes Absolute 0.03 #; Lymphocytes # 1.8 10*3/uL (1.4-4.0); Lymphocytes % 27.1 % (21.3-54.2); Mean Corpuscular HGB Conc 32.5 GM/DL (32-36); Mean Corpuscular Hemoglobin 31 PG (27-34); Mean Corpuscular Volume 94.5 FL (87-102); Mean Platelet Volume 9.7 FL (9.6-12.0); Monocytes # 0.6 10*3/uL (0.11-0.8); Monocytes % 9.3 % (1.7-12.7); Neutrophils # 3.3 10*3/uL (1.4-7.4); Neutrophils % 50.7 % (38.7-73.9); Platelet Count 163 T/CUMM (130-400); Red Blood Count 2.93 MC/CUMM (3.8-5.5); Red Cell Distribution Width 18.6 % (9.3-17.3); White Blood Count 6.5 T/CUMM (4-12)
[2017-03-23 06:43] LABS: Calcium 7.7 MG/DL (8.5-10.1); Osmolality,Calculated 293.1 MOS/KG (273-304); Potassium 4.4 MMOL/L (3.5-5.1)
[2017-03-23 07:06] LABS: Eosinophils 12 % (0-10); Giant Platelets Few; Hypochromasia 1+; Lymphocytes 28 % (20-55); Ovalocytes Slight; Platelet Estimate Normal; Segmented Neutrophils 58 % (50-85); Total Cells Counted 100
[2017-03-23] MEDS ORDERED: sitaGLIPtin 100 MG TABLET PO SCH (09:00)
[2017-03-23] MEDS: CARVEDILOL 25 MG TABLET PO SCH (10:39)
[2017-03-23] MEDS: MULTIVITAMIN (CENTRUM) TABLET PO SCH (10:39)
[2017-03-23] MEDS: SACUBITRIL/VALSARTAN 49-51 MG TABLET PO SCH (10:40)
[2017-03-23] MEDS: PANTOPRAZOLE 40 MG TABLET PO SCH (10:42)
--- NOTE | 2017-03-23 11:10 | Discharge Summary ---
Hospital Course - Hospital Course Hospital Course: Ms. Jaquez is a 66 year old female transfer from [facility]. She was found unresponsive by family, called EMS who found her glucose of 41mg/dL. She was given 25gram of D50 that improved her glucose to 120mg/dL. She was worked up to find her temperature 90 degrees and was transferred here for closer monitoring. Patient states she went to sleep at 1AM and has no recollection of events until she woke up in the ED. Ms. Jaquez has a history of HTN, DM, PAD, CKD-stage 3, CHF (dx 12/2016), dyslipidemia, [place] palsy, and anemia. She was found to have an EF of 35% in December 2016 that decreased to 25%. She reached maximum pharmaceutical management which made her a candidate for an dual chamber ICD that was placed last week. She was discharged Wednesday for follow-up with cardiology clinic. Her last cardiac catherization was December 2016 that showed 50% occlusion of LAD. She has recently had a blood pressure medication change. For her diabetes, she takes Onglyza 5mg, Levemir 30units QPM and Novolog 7 units AC. She can not remember her last HgbA1C but receives care at the [facility]. She denies having problems with hypoglycemia or hypothermia before. She will be admitted into the ICU for close monitoring. We will hold her Onglyza and insulin for now and perform q6 hour accuchecks. We will consult diabetic education for re-education of diet and medication regimen. We will check routine lab work. Cardiology is not required at this time due to no cardiac issue. We will revisit as needed. Her other home medications will be resumed after confirmation. The patient was admitted to the hospital for further blood glucose testing and monitoring. Her blood sugars have gone up with holding her oral agents. Her hemoglobin A1c was 9.5. She has reached maximal benefit from this inpatient hospitalization and is being discharged home with reduced doses of Levemir from 30 units to 20 units nightly and decrease in NovoLog from 7 units to 5 units 3 times daily. She will need follow-up with her physicians at the [facility] for further adjustments of her medications. She was instructed to check her blood sugars frequently at home. She reports a decrease in appetite and this may be contributing to her hypoglycemic event. She was instructed not to use subcu insulin if her appetite is not good. She had an incidental finding of gram-negative rods in the urine but it was only 6000 colonies and she was asymptomatic. This was not treated with antibiotics. The patient's home medications were reviewed and reconciled. She received education at the time of discharge. Her daughter was at the bedside at the time of my evaluation as well as her nurse. She is a full code. - Time spent with patient Time with patient DS: Greater than 30 minutes (Total discharge time for this patient, including [id number] time, clinical documentation, medication reconciliation, and discharge planning was 37 minutes.) Diagnosis - Discharge Diagnosis (1) Diabetes mellitus Status: Chronic (2) Hypertension Status: Chronic (3) Hyperlipidemia Status: Chronic (4) History of right above knee amputation Status: Chronic (5) Hypoglycemia Status: Resolved (6) ICD (implantable cardioverter-defibrillator) in place Status: Chronic (7) Chronic kidney disease Status: Chronic Discharge Plan - Discharge Data Disposition: Disch To Home/Self Care Condition at Discharge: Stable Discharge Diet: diabetic diet Activity: resume usual activities as tolerated Hygiene: no restrictions Contact your physician if you experience:: fever over 101, Nausea/Vomiting - Discharge Medications New Carvedilol [Coreg] 25 mg PO BID #60 tablet Continue Nortriptyline [Pamelor] 50 mg PO BEDTIME Multivitamin with Iron [Multivitamins with Iron] 1 tablet PO DAILY Aspirin EC Tab 81 mg PO BEDTIME Acetaminophen Tab [Tylenol Tab] 650 mg PO Q4H PRN tablet PRN Reason: Fever, Headache, Mild Pain HYDROcodone/ACETAMIN 7.5-325 [[place] 7.5-325] 1 tablet PO Q4H #30 tablet Saxagliptin HCl [Onglyza] 5 mg PO DAILY Atorvastatin [Lipitor] 40 mg PO BEDTIME Sacubitril/Valsartan [Entresto 24 mg-26 mg Tablet] 1 tablet PO BID Mineral Oil/Petrolatum,White [Lubrifresh Pm Eye Ointment] 1 applicator BOTH EYES BEDTIME PRN PRN Reason: Dry Eyes Changed Insulin Aspart [NovoLOG FlexPen] 5 units SUBCUT TID #0 Insulin Detemir [Levemir FlexPen] 20 units SUBCUT BEDTIME #0 Discontinued Carvedilol [Coreg] 25 mg PO BID - Follow Up or Referral - Forms/Instructions Additional Discharge Instructions: Follow-up with primary care physician in 1 week as needed Exam - Constitutional Vitals: Period Temp Pulse Resp BP Sys/Berman Pulse Ox Last 24 Hr 96.4 F-98.9 F 81-101 12-20 103-135/56-76 92-95 Discharge Results Procedures and tests throughout hospitalization: Pending Orders 03/22/17 Urine Culture Routine Labs on day of discharge: Labs from last 24 hours 03/23/17 03/23/17 03/23/17 06:23 04:33 04:33 WBC 6.5 RBC 2.93 L Hgb 9.0 L Hct 27.7 L MCV 94.5 MCH 31 MCHC 32.5 RDW 18.6 H Plt Count 163 MPV 9.7 Neut % (Auto) 50.7 Lymph % (Auto) 27.1 [place] % (Auto) 9.3 Eos % (Auto) 11.9 H Baso % (Auto) 0.5 Neut # (Auto) 3.3 Lymph # (Auto) 1.8 [place] # (Auto) 0.6 Eos # (Auto) 0.8 Baso # (Auto) 0.0 Total Counted 100 Immature Gran % 0.5 Nucleated RBC % 0.0 Immature Gran # 0.03 Segmented Neutrophils 58 Lymphocytes 28 Monocytes 2 Eosinophils 12 H Nucleated RBCs # 0.00 Platelet Estimate Normal Giant Platelets Few Immature Plt Fraction 0.0 Hypochromasia 1+ Ovalocytes Slight Sodium 142 Potassium 4.4 Chloride 110 H Carbon Dioxide 26 Anion Gap 10.4 BUN 21 H Creatinine 1.10 H GFR Calculation 53 BUN/Creatinine Ratio 19.00 Glucose 243 H POC Glucose 250 H Calculated Osmolality 293.1 Calcium 7.7 L Magnesium 2.0 Urine Color Urine Appearance Urine pH Ur Specific Girard Urine Protein Urine Glucose (UA) Urine Ketones Urine Blood Urine Nitrate Urine Bilirubin Urine Urobilinogen Urine Leukocytes Urine RBC Urine WBC Ur Squamous Epith Cells Urine Bacteria Urine Mucus Ur Culture Indicated? 03/23/17 03/22/17 03/22/17 00:15 19:49 16:35 WBC RBC Hgb Hct MCV MCH MCHC RDW Plt Count MPV Neut % (Auto) Lymph % (Auto) [place] % (Auto) Eos % (Auto) Baso % (Auto) Neut # (Auto) Lymph # (Auto) [place] # (Auto) Eos # (Auto) Baso # (Auto) Total Counted Immature Gran % Nucleated RBC % Immature Gran # Segmented Neutrophils Lymphocytes Monocytes Eosinophils Nucleated RBCs # Platelet Estimate Giant Platelets Immature Plt Fraction Hypochromasia Ovalocytes Sodium Potassium Chloride Carbon Dioxide Anion Gap BUN Creatinine GFR Calculation BUN/Creatinine Ratio Glucose POC Glucose 255 H 253 H 228 H Calculated Osmolality Calcium Magnesium Urine Color Urine Appearance Urine pH Ur Specific [place] Urine Protein Urine Glucose (UA) Urine Ketones Urine Blood Urine Nitrate Urine Bilirubin Urine Urobilinogen Urine Leukocytes Urine RBC Urine WBC Ur Squamous Epith Cells Urine Bacteria Urine Mucus Ur Culture Indicated? 03/22/17 03/22/17 12:20 11:10 WBC RBC Hgb Hct MCV MCH MCHC RDW Plt Count MPV Neut % (Auto) Lymph % (Auto) [place] % (Auto) Eos % (Auto) Baso % (Auto) Neut # (Auto) Lymph # (Auto) [place] # (Auto) Eos # (Auto) Baso # (Auto) Total Counted Immature Gran % Nucleated RBC % Immature Gran # Segmented Neutrophils Lymphocytes Monocytes Eosinophils Nucleated RBCs # Platelet Estimate Giant Platelets Immature Plt Fraction Hypochromasia Ovalocytes Sodium Potassium Chloride Carbon Dioxide Anion Gap BUN Creatinine GFR Calculation BUN/Creatinine Ratio Glucose POC Glucose 166 H Calculated Osmolality Calcium Magnesium Urine Color Yellow Urine Appearance Slightly hazy Urine pH 5.0 Ur Specific [place] 1.012 Urine Protein 100 Urine Glucose (UA) Negative Urine Ketones Negative Urine Blood Moderate Urine Nitrate Negative Urine Bilirubin Negative Urine Urobilinogen < 2.0 H Urine Leukocytes Small H Urine RBC 20 Urine WBC 5 Ur Squamous Epith Cells Occasional Urine Bacteria Occasional Urine Mucus Occasional Ur Culture Indicated? Results to follow Preliminary micro results at discharge 03/22/17 Unknown Urine Culture - Preliminary Urine,Catheterized Gram Negative Rods DS: Provider Date of admission: 03/21/17 16:19 Primary care physician: Gina Jolley MD Attending physician on admission: Jarvis Gamboa MD Consults: 03/21/17 19:56 Consult to [facility], Educator [CONS] Routine Reason for Special Shopper: Re-education Discharging clinician: Rebeka Santos MD Expected date of discharge: 03/23/17
[2017-03-23 11:49] VITALS: BP 126/78
[2017-03-23] MEDS ORDERED: INSULIN GLARGINE 100 UNIT/ML SUBCUT SCH (21:00)
== END 2017-03-23 14:45 | disposition home or self-care (01) | DRG 638 ==
LOC: SUATTDRO 16:19 → N.ICU 17:58 → SUATTDRO 17:58 → N.ICU 18:32 → N.4E 03-22 12:14
PROVIDERS: ADMIT Internal Medicine; ATTEND Family Medicine

== ENCOUNTER 2017-05-23 20:43 | Inpatient (IN) ==
[2017-05-23] MEDS ORDERED: methylPREDNISolone SOD SUC 125 MG/2 ML VIAL IV STA (22:22)
[2017-05-23] MEDS ORDERED: ONDANSETRON 4 MG/2 ML VIAL IV STA (22:22)
[2017-05-23] MEDS ORDERED: FUROSEMIDE 100 MG/10 ML VIAL IV STA (22:22)
[2017-05-23] MEDS ORDERED: MORPHINE 2 MG/1 ML SYRINGE IV STA (22:22)
[2017-05-23] MEDS ORDERED: ALBUTEROL 2.5 MG/3 ML NEB RESP TX SCH (22:30)
[2017-05-23] MEDS ORDERED: FUROSEMIDE 40 MG/4 ML VIAL ONE (22:45)
[2017-05-23] MEDS ORDERED: ONDANSETRON 4 MG/2 ML VIAL ONE (22:45)
[2017-05-23] MEDS ORDERED: FUROSEMIDE 20 MG/2 ML VIAL ONE (22:45)
[2017-05-23] MEDS ORDERED: methylPREDNISolone SOD SUC 125 MG/2 ML VIAL ONE (22:46)
[2017-05-23] MEDS ORDERED: MORPHINE 2 MG/1 ML SYRINGE ONE (22:46)
[2017-05-23 23:22] LABS: Basophils % 0.7 % (0.0-0.8); Eosinophils # 0.6 10*3/uL (0.0-0.87); Eosinophils % 10.8 % (0.00-10.9); Hematocrit 29.4 VOL% (35.7-47.0); Hemoglobin 9.5 GM/DL (12.0-16.0); Immature Granulocytes % 0.3 %; Immature Granulocytes Absolute 0.02 #; Lymphocytes # 1.6 10*3/uL (1.4-4.0); Mean Corpuscular HGB Conc 32.3 GM/DL (32-36); Mean Corpuscular Hemoglobin 32 PG (27-34); Mean Corpuscular Volume 99.3 FL (87-102); Mean Platelet Volume 9.9 FL (9.6-12.0); Monocytes # 0.5 10*3/uL (0.11-0.8); Monocytes % 7.7 % (1.7-12.7); Neutrophils # 3.1 10*3/uL (1.4-7.4); Neutrophils % 52.5 % (38.7-73.9); Platelet Count 156 T/CUMM (130-400); Red Blood Count 2.96 MC/CUMM (3.8-5.5); Red Cell Distribution Width 18.5 % (9.3-17.3); White Blood Count 5.8 T/CUMM (4-12)
[2017-05-23 23:42] LABS: Lactic Acid 0.9 MMOL/L (0.4-2.0)
[2017-05-23 23:43] LABS: Albumin 2.8 G/DL (3.4-5.0); Bilirubin,Total 0.8 MG/DL (0.2-1.0); Calcium 7.8 MG/DL (8.5-10.1); Magnesium 2.1 MG/DL (1.8-2.4); Osmolality,Calculated 289.1 MOS/KG (273-304); Potassium 3.8 MMOL/L (3.5-5.1); Total Protein 6.6 G/DL (6.4-8.3); Troponin I Only 0.017 NG/ML (0.00-0.045)
[2017-05-24] MEDS ORDERED: CALCIUM CHLORIDE 1,000 MG/10 ML SYRINGE IV ONE (01:26)
[2017-05-24] MEDS ORDERED: MORPHINE 2 MG/1 ML SYRINGE IV PRN (01:26)
[2017-05-24] MEDS ORDERED: DEXTROSE 50% 25 GM/50 ML VIAL IV PRN (01:26)
[2017-05-24] MEDS ORDERED: ONDANSETRON 4 MG/2 ML VIAL IV PRN (01:26)
[2017-05-24] MEDS ORDERED: GLUCAGON 1 MG VIAL IM PRN (01:26)
[2017-05-24] MEDS ORDERED: PANTOPRAZOLE 40 MG VIAL IV SCH (01:26)
[2017-05-24] MEDS ORDERED: CALCIUM GLUCONATE 2,000 MG in SODIUM CHLORIDE 0.9% 100 ML IV ONE (02:00)
[2017-05-24] MEDS: IPRATROPIUM 500 MCG/2.5 ML NEB RESP TX SCH ×3 (02:01→11:42)
[2017-05-24 02:08] LABS: ABG Base Excess -3.3 MMOL/L (-2.5-2.5); ABG HCO3 21.6 MMOL/L (20-26); ABG Oxygen Saturation 96.3 % (95-100); ABG PCO2 44.6 MM HG (35-48); ABG PH 7.317 (7.35-7.45); ABG PO2 86.5 MM HG (80-95); ABG TCO2 21.1 MMOL/L (23-27); Allen Test Positive
[2017-05-24] MEDS: CARVEDILOL 25 MG TABLET PO SCH ×3 (02:49→17:19)
[2017-05-24] MEDS: SACUBITRIL/VALSARTAN 49-51 MG TABLET PO SCH ×3 (02:50→21:30)
[2017-05-24 05:09] LABS: Risk Ratio 2.17; VLDL CHOLESTEROL 17.2 MG/DL
[2017-05-24] MEDS: INSULIN LISPRO 100 UNIT/ML SUBCUT SCH ×7 (07:14→21:32)
[2017-05-24] MEDS: FUROSEMIDE 40 MG/4 ML VIAL IV SCH ×2 (07:40→17:19)
[2017-05-24] MEDS: ENOXAPARIN 40 MG/0.4 ML SYRINGE SUBCUT SCH (08:45)
[2017-05-24] MEDS: ASPIRIN EC 81 MG TABLET PO SCH (08:46)
[2017-05-24] MEDS: SPIRONOLACTONE 25 MG TABLET PO SCH (08:46)
[2017-05-24] MEDS: DOCUSATE SODIUM 100 MG CAPSULE PO SCH ×2 (08:46→21:30)
[2017-05-24] MEDS: CALCIUM (CARBONATE)/VITAMIN D 600 MG-400 UNIT TABLET PO SCH ×2 (08:46→21:30)
[2017-05-24] MEDS: FOLIC ACID 1 MG TABLET PO SCH (08:46)
[2017-05-24] MEDS ORDERED: ATORVASTATIN 40 MG TABLET PO SCH (09:00)
[2017-05-24] MEDS ORDERED: sitaGLIPtin 100 MG TABLET PO SCH (09:00)
[2017-05-24 10:04] LABS: Troponin I Only 0.016 NG/ML (0.00-0.045)
[2017-05-24] MEDS: ALBUTEROL/IPRATROPIUM 3 ML NEB RESP TX SCH ×2 (19:18→23:59)
[2017-05-24] MEDS: NORTRIPTYLINE 25 MG CAPSULE PO SCH (21:30)
[2017-05-24] MEDS: INSULIN GLARGINE 100 UNIT/ML SUBCUT SCH (21:31)
[2017-05-24] MEDS: ATORVASTATIN 40 MG TABLET PO SCH (21:33)
[2017-05-25 06:43] LABS: Basophils % 0.3 % (0.0-0.8); Eosinophils % 0.1 % (0.00-10.9); Hematocrit 26.7 VOL% (35.7-47.0); Hemoglobin 8.8 GM/DL (12.0-16.0); Immature Granulocytes % 0.3 %; Immature Granulocytes Absolute 0.02 #; Lymphocytes # 1.3 10*3/uL (1.4-4.0); Lymphocytes % 18.4 % (21.3-54.2); Mean Corpuscular Hemoglobin 32 PG (27-34); Mean Corpuscular Volume 97.1 FL (87-102); Monocytes # 0.5 10*3/uL (0.11-0.8); Monocytes % 7.7 % (1.7-12.7); Neutrophils # 5.1 10*3/uL (1.4-7.4); Neutrophils % 73.2 % (38.7-73.9); Platelet Count 172 T/CUMM (130-400); Red Blood Count 2.75 MC/CUMM (3.8-5.5); Red Cell Distribution Width 18.4 % (9.3-17.3)
[2017-05-25 07:07] LABS: Calcium 7.8 MG/DL (8.5-10.1); Magnesium 1.7 MG/DL (1.8-2.4); Potassium 3.7 MMOL/L (3.5-5.1)
[2017-05-25 07:17] LABS: Albumin 2.1 G/DL (3.4-5.0); Free T4 (Free Thyroxine) 0.93 NG/DL (0.76-1.46); Magnesium 1.7 MG/DL (1.8-2.4); Osmolality,Calculated 294.1 MOS/KG (273-304); Phosphorous 3.8 MG/DL (2.5-4.9); Potassium 3.7 MMOL/L (3.5-5.1); Thyroid Stimulating Hormone 6.6 uIU/ml (0.358-3.74)
[2017-05-25] MEDS: ALBUTEROL/IPRATROPIUM 3 ML NEB RESP TX SCH ×3 (07:33→20:06)
[2017-05-25] MEDS: PANTOPRAZOLE 40 MG TABLET PO SCH (09:02)
[2017-05-25] MEDS: FOLIC ACID 1 MG TABLET PO SCH (09:02)
[2017-05-25] MEDS: ASPIRIN EC 81 MG TABLET PO SCH (09:02)
[2017-05-25] MEDS: CALCIUM (CARBONATE)/VITAMIN D 600 MG-400 UNIT TABLET PO SCH ×2 (09:02→21:09)
[2017-05-25] MEDS: CARVEDILOL 25 MG TABLET PO SCH ×2 (09:02→17:37)
[2017-05-25] MEDS: SPIRONOLACTONE 25 MG TABLET PO SCH (09:03)
[2017-05-25] MEDS: DOCUSATE SODIUM 100 MG CAPSULE PO SCH ×2 (09:03→21:09)
[2017-05-25] MEDS: ENOXAPARIN 40 MG/0.4 ML SYRINGE SUBCUT SCH (09:03)
[2017-05-25] MEDS: SACUBITRIL/VALSARTAN 49-51 MG TABLET PO SCH ×2 (09:03→21:09)
[2017-05-25] MEDS: INSULIN LISPRO 100 UNIT/ML SUBCUT SCH ×7 (09:03→21:12)
[2017-05-25] MEDS: FUROSEMIDE 40 MG/4 ML VIAL IV SCH ×2 (11:22→17:37)
[2017-05-25] MEDS ORDERED: MAGNESIUM SULF RIDER 4 GM in PREMIX 1 EACH IV PRN (14:45)
[2017-05-25] MEDS ORDERED: MAGNESIUM SULF RIDER 2 GM in PREMIX 1 EACH IV PRN (14:45)
[2017-05-25] MEDS: INSULIN GLARGINE 100 UNIT/ML SUBCUT SCH (21:08)
[2017-05-25] MEDS: ATORVASTATIN 40 MG TABLET PO SCH (21:09)
[2017-05-25] MEDS: NORTRIPTYLINE 25 MG CAPSULE PO SCH (21:09)
[2017-05-25] MEDS: MAGNESIUM CHLORIDE 64 MG TABLET PO SCH (21:11)
[2017-05-26] MEDS: ALBUTEROL/IPRATROPIUM 3 ML NEB RESP TX SCH ×4 (00:35→19:20)
[2017-05-26 06:16] LABS: Basophils % 0.4 % (0.0-0.8); Eosinophils # 0.6 10*3/uL (0.0-0.87); Eosinophils % 8.4 % (0.00-10.9); Hematocrit 26.3 VOL% (35.7-47.0); Hemoglobin 8.5 GM/DL (12.0-16.0); Immature Granulocytes % 0.3 %; Immature Granulocytes Absolute 0.02 #; Lymphocytes # 1.8 10*3/uL (1.4-4.0); Lymphocytes % 26.6 % (21.3-54.2); Mean Corpuscular HGB Conc 32.3 GM/DL (32-36); Mean Corpuscular Hemoglobin 32 PG (27-34); Mean Corpuscular Volume 98.1 FL (87-102); Mean Platelet Volume 9.9 FL (9.6-12.0); Monocytes # 0.5 10*3/uL (0.11-0.8); Monocytes % 7.9 % (1.7-12.7); Neutrophils # 3.8 10*3/uL (1.4-7.4); Neutrophils % 56.4 % (38.7-73.9); Platelet Count 171 T/CUMM (130-400); Red Blood Count 2.68 MC/CUMM (3.8-5.5); Red Cell Distribution Width 18.3 % (9.3-17.3); White Blood Count 6.7 T/CUMM (4-12)
[2017-05-26 06:45] LABS: Calcium 7.9 MG/DL (8.5-10.1); Magnesium 1.8 MG/DL (1.8-2.4); Potassium 3.7 MMOL/L (3.5-5.1)
[2017-05-26 06:57] LABS: Albumin 2.2 G/DL (3.4-5.0); Bilirubin,Total 0.5 MG/DL (0.2-1.0); Calcium 7.9 MG/DL (8.5-10.1); Osmolality,Calculated 292.1 MOS/KG (273-304); Potassium 3.7 MMOL/L (3.5-5.1); Total Protein 5.5 G/DL (6.4-8.3)
[2017-05-26] MEDS: INSULIN LISPRO 100 UNIT/ML SUBCUT SCH ×7 (08:56→21:47)
[2017-05-26] MEDS: CALCIUM (CARBONATE)/VITAMIN D 600 MG-400 UNIT TABLET PO SCH ×2 (08:59→21:46)
[2017-05-26] MEDS: SPIRONOLACTONE 25 MG TABLET PO SCH (08:59)
[2017-05-26] MEDS: DOCUSATE SODIUM 100 MG CAPSULE PO SCH ×2 (08:59→21:46)
[2017-05-26] MEDS: CARVEDILOL 25 MG TABLET PO SCH ×2 (08:59→17:47)
[2017-05-26] MEDS: ASPIRIN EC 81 MG TABLET PO SCH (08:59)
[2017-05-26] MEDS: FUROSEMIDE 40 MG/4 ML VIAL IV SCH ×2 (08:59→17:47)
[2017-05-26] MEDS: SACUBITRIL/VALSARTAN 49-51 MG TABLET PO SCH ×2 (08:59→21:46)
[2017-05-26] MEDS: MAGNESIUM CHLORIDE 64 MG TABLET PO SCH ×2 (09:00→21:46)
[2017-05-26] MEDS: ENOXAPARIN 40 MG/0.4 ML SYRINGE SUBCUT SCH (09:00)
[2017-05-26] MEDS: FOLIC ACID 1 MG TABLET PO SCH (09:00)
[2017-05-26] MEDS: PANTOPRAZOLE 40 MG TABLET PO SCH (09:00)
[2017-05-26] MEDS: NORTRIPTYLINE 25 MG CAPSULE PO SCH (21:46)
[2017-05-26] MEDS: ATORVASTATIN 40 MG TABLET PO SCH (21:46)
[2017-05-26] MEDS: INSULIN GLARGINE 100 UNIT/ML SUBCUT SCH (21:47)
[2017-05-27] MEDS: ALBUTEROL/IPRATROPIUM 3 ML NEB RESP TX SCH ×2 (00:12→07:22)
[2017-05-27 07:22] LABS: Magnesium 1.7 MG/DL (1.8-2.4); Osmolality,Calculated 289.1 MOS/KG (273-304); Potassium 3.7 MMOL/L (3.5-5.1)
[2017-05-27 08:05] VITALS: BP 130/62
[2017-05-27] MEDS: INSULIN LISPRO 100 UNIT/ML SUBCUT SCH ×2 (08:19)
[2017-05-27] MEDS: FUROSEMIDE 40 MG/4 ML VIAL IV SCH (08:19)
[2017-05-27] MEDS: MAGNESIUM CHLORIDE 64 MG TABLET PO SCH (08:19)
[2017-05-27] MEDS: SACUBITRIL/VALSARTAN 49-51 MG TABLET PO SCH (08:20)
[2017-05-27] MEDS: ASPIRIN EC 81 MG TABLET PO SCH (08:20)
[2017-05-27] MEDS: DOCUSATE SODIUM 100 MG CAPSULE PO SCH (08:20)
[2017-05-27] MEDS: PANTOPRAZOLE 40 MG TABLET PO SCH (08:20)
[2017-05-27] MEDS: CALCIUM (CARBONATE)/VITAMIN D 600 MG-400 UNIT TABLET PO SCH (08:20)
[2017-05-27] MEDS: FOLIC ACID 1 MG TABLET PO SCH (08:20)
[2017-05-27] MEDS: CARVEDILOL 25 MG TABLET PO SCH (08:20)
[2017-05-27] MEDS: SPIRONOLACTONE 25 MG TABLET PO SCH (08:20)
[2017-05-27] MEDS: ENOXAPARIN 40 MG/0.4 ML SYRINGE SUBCUT SCH (08:20)
== END 2017-05-27 11:37 | disposition swing bed (61) | DRG 189 ==
LOC: EDBD → EDUNIT# → N.ED 20:43 → SUATTDRO 23:59 → N.EDINP 23:59 → N.ICU 05-24 00:46 → N.5E 05-24 18:14
PROVIDERS: ADMIT Pediatrics; ATTEND Internal Medicine